=== PATIENT | female | born 1960 | race Two or more races ===

== ENCOUNTER 2023-03-16 08:35 | Emergency (ER) | payer OTHER, SELFPAY ==
--- NOTE | ~2023-03-16 | XR_ITS ---
EXAMINATION: XR CHEST CLINICAL INFORMATION: Cough. COMPARISON: None available. TECHNIQUE: Frontal view of the chest was obtained. FINDINGS: No significant abnormality is noted involving the heart, lungs, mediastinum, bony thorax or soft tissues. XR/XR chest 1V IMPRESSION: No acute cardiopulmonary process.
[2023-03-16 08:36] VITALS: BP 121/73; PULSE 90; RESP 18; TEMP 37.1; O2SAT 98; BMI 31.2
[2023-03-16 09:05] LABS: IDNOW Serial# 08D9AD1C; Strep A Nucleic Acid Positive (Negative)
[2023-03-16 09:34] LABS: Influenza A PCR NEGATIVE (Negative); Influenza B PCR NEGATIVE (Negative); Resp Syncy Virus RNA Qual PCR NEGATIVE (Negative); SARS COV2 PCR INHOUSE NEGATIVE (Negative)
--- NOTE | 2023-03-16 09:49 | ED_ITS ---
HPI - General Adult General Chief complaint: General Medical Stated complaint: Sore throat/SOB/Back pain Time Seen by Provider: 03/16/23 09:37 Source: patient, family, RN notes reviewed and old records reviewed Mode of arrival: ambulatory History of Present Illness HPI narrative: 62-year-old female the past medical history of asthma presenting to the ED complaining of generalized fatigue/weakness, dry cough, ear pain, sore throat, nausea, emesis x1 and mild SOB x 3 days. Reports painful swallowing. Denies difficulty/inability to swallow, chest pain, abdominal pain, recent travel, pedal edema Onset (ago): day(s) Related Data Previous Rx's Medication Instructions Recorded penicillin V potassium 500 mg 500 mg PO BID 10 days #20 tabs 03/16/23 tablet Allergies Allergy/AdvReac Type Severity Reaction Status Date / Time No Known Allergies Allergy Verified 03/16/23 08:39 Review of Systems Review of Systems: Constitutional: +subj Fever, + Chills, +fatigue ENT/Mouth: No Ear Pain, + Nasal Congestion, No Sinus Pain, No Hoarseness, + sore throat, + Rhinorrhea, No Swallowing Difficulty Cardiovascular: No Chest Pain, + SOB Respiratory: + Cough, No Sputum, No Wheezing Gastrointestinal: + Nausea, + Vomiting, No Diarrhea, No Constipation, No Abdominal pain Genitourinary: No Dysuria, No Urinary Frequency, No Urgency, No Flank Pain Musculoskeletal: No joint pain, No Myalgias, No Joint Swelling Skin: No Skin Lesions, No rash Neuro: + Weakness, No Numbness, No Paresthesias Yes all other systems are reviewed and are negative Constitutional: Constitutional: Reports as per [facility] Past Medical History Attestation statement: The following information was validated with the patient. Social History Social History Advance Directives: No Advance Directives Information Provided: No Physical Exam ED Vital Signs: Vital Signs - 24 hr 03/16/23 08:36 Temperature 98.8 F Pulse Rate 90 Respiratory Rate 18 Blood Pressure 121/73 Pulse Oximetry 98 Oxygen Delivery Method Room Air BMI result Body Mass Index 31.2 Const General: cooperative, healthy appearing, no acute distress, alert and awake; No ill appearing Orientation/consciousness: patient oriented x3 Limitations: no limitations HENMT Head: Yes normal to inspection and Yes atraumatic Ears: hearing grossly normal bilaterally, external ears normal, TM's normal bilaterally and mastoids normal General nose exam: Normal external nose present Face and sinus: Yes normal facial exam Throat: Yes abnormal tonsil, No peritonsillar mass, Yes posterior oropharynx abnormal (+ erythematous with exudates) and Yes uvular edema (Mild) Eyes General: appearance normal, both eyes and all related structures EOM: EOMs intact bilaterally Neck Other: + submandibular lymphadenopathy Neck: Yes normal visual inspection, Yes no meningeal signs, Yes trachea midline and No anterior neck swelling Resp Effort & Inspection: normal respiratory effort, no respiratory distress and no stridor Auscultation: clear to auscultation bilaterally, no crackles, no rales, no rhonchi and no wheezes Cardio Rate: regular rate Heart sounds: S1 normal heart sound present and S2 normal heart sound present Skin Rashes: no rashes Wounds: no wounds Neuro General: patient oriented x3, tone normal and no meningeal signs Gait exam (Neuro): Normal gait present Extrem General: Yes normal to inspection Course Course Course Narrative: -954--COVID/flu/RSV negative. Rapid strep positive > will give dose of p.o. Decadron -CXR unremarkable Results discussed with patient including worrisome signs and symptoms and strict return precautions, and when to return to the emergency department. They verbalized understanding and feel safe for discharge at this time. Medications Administered Discontinued Medications Generic Name Dose Route Start Last Admin Trade Name Freq PRN Reason Stop Dose Admin Dexamethasone Sodium Phosphate 10 mg 03/16/23 09:45 03/16/23 10:03 Dexamethasone Sod Phosphate 10 Mg/Ml Vial IVPUSH 03/16/23 09:46 10 mg ONCE ONE Administration Medical Decision Making Medical Decision Making [facility] Narrative: 62-year-old female the past medical history of asthma presenting to the ED complaining of generalized fatigue/weakness, dry cough, ear pain, sore throat, nausea, emesis x1 and mild SOB x 3 days. On exam vital signs stable, NAD, nontoxic appearing, talking in complete sentences, no respiratory distress, lungs CTA, posterior oropharynx erythematous with exudate and mild uvular edema. Uvula midline, no evidence of [employer]NA[employer]. Concern for viral illness vs strep pharyngitis vs pneumonia. Lower suspicion for intra-abdominal pathology including appendicitis/diverticulitis or ACS/PE Plan: COVID/flu/rapid strep testing, CXR, reassess Please refer to course for remaining clinical decision making, interpretation of labs/imaging results, and discussions with consultants and/or family members. Differential Diagnosis Differential Diagnoses: The differential diagnosis associated with the presentation includes As above Admission/Observation Consideration of admission/observation: Escalation of care including admission/observation considered Lab Data MDM Lab Attestation statement: I reviewed the patient's lab results. Labs: Lab Results 03/16/23 03/16/23 Range/Units 08:48 08:48 Influenza Type A (PCR) NEGATIVE (Negative) Influenza Type B (PCR) NEGATIVE (Negative) RSV RNA Qual (PCR) NEGATIVE (Negative) SARS-CoV-2 RNA (RT-PCR) NEGATIVE (Negative) S. pyogenes GrpA SCOTTY Positive A (Negative) Radiology Impression Discussion of test interpretation with radiology: I have reviewed the radiologist's reading. External Record Review External record reviewed: Inpatient record, Office record, Outpatient record, Prior outpatient labs, Prior outpatient radiology, Primary care record and Outside ED record Discharge Plan Discharge Clinical Impression: Acute streptococcal pharyngitis Patient Disposition: Home, Self-Care Instructions: Strep Throat (DC) Additional Instructions: You have strep throat. Penicillin is antibiotic please take as prescribed You tested negative for COVID, flu, RSV, and your x-ray was unremarkable Rest Stay hydrated Gargle with warm salt water Take Tylenol and Motrin as needed If symptoms persist or worsen, you develop persistent or worsening sore throat, difficulty or inability to swallow return to the ED Prescriptions: New penicillin V potassium 500 mg tablet 500 mg PO BID 10 Days Qty: 20 0RF Referrals: Physician,Unknown J [Primary Care Provider] - Stand Alone Forms: Work/School Release Interventions: ED Discharge Assessment Last Done: 03/16/23 10:06 Discharge Date/Time: 03/16/23 10:06
[2023-03-16] MEDS: dexAMETHasone sod phosphate 10 MG/ML VIAL IVPUSH (10:03)
== END 2023-03-16 10:06 | disposition home or self-care (01) ==
PROVIDERS: Emergency Provider Emergency Medicine
DX: J02.0 Streptococcal pharyngitis (principal); J02.8 Acute pharyngitis due to other specified organisms; R05.9 Cough, unspecified; R06.02 Shortness of breath; M54.50 Low back pain, unspecified; Z20.822 Contact with and (suspected) exposure to COVID-19; Z20.828 Contact with and (suspected) exposure to other viral communicable diseases; Z79.899 Other long term (current) drug therapy
CPT/HCPCS: 0241U; 71045; 87651; 99282; 99283; J1100

== ENCOUNTER 2023-09-30 14:53 | Emergency (ER) | payer OTHER, SELFPAY ==
--- NOTE | ~2023-09-30 | XR_ITS ---
EXAMINATION: X-RAY LUMBAR SPINE X-RAY SACRUM/COCCYX CLINICAL INDICATION: Fall. COMPARISON: No similar priors. TECHNIQUE: 3 views of the lumbar spine and 3 views of the cecum/coccyx. FINDINGS: Lumbar spine: No evidence of acute compression deformity or traumatic subluxation. Mild intervertebral disc height loss and facet arthropathy at L5-S1. No significant paraspinal soft tissue abnormality. Sacrum/coccyx: SI joints are symmetric. No discrete displaced sacral fracture. Pubic symphysis and pelvic rim are maintained. Small pelvic phleboliths. XR/XR lumbar spine 2-3V IMPRESSION: No acute fracture or subluxation seen. Mild lower lumbar spondylosis.
--- NOTE | ~2023-09-30 | XR_ITS ---
EXAMINATION: X-RAY LUMBAR SPINE X-RAY SACRUM/COCCYX CLINICAL INDICATION: Fall. COMPARISON: No similar priors. TECHNIQUE: 3 views of the lumbar spine and 3 views of the cecum/coccyx. FINDINGS: Lumbar spine: No evidence of acute compression deformity or traumatic subluxation. Mild intervertebral disc height loss and facet arthropathy at L5-S1. No significant paraspinal soft tissue abnormality. Sacrum/coccyx: SI joints are symmetric. No discrete displaced sacral fracture. Pubic symphysis and pelvic rim are maintained. Small pelvic phleboliths. XR/XR sacrum coccyx min 2V IMPRESSION: No acute fracture or subluxation seen. Mild lower lumbar spondylosis.
[2023-09-30 15:24] VITALS: BP 119/71; PULSE 84; RESP 20; TEMP 36.6; O2SAT 96; BMI 30.6
--- NOTE | 2023-09-30 17:43 | ED.BACK ---
HPI - Back Pain/Injury General Chief Complaint: Back Pain/Injury Stated Complaint: Back Pain S/P Work Injury 09/30/23 Time Seen by Provider: 09/30/23 16:04 Source: patient, RN notes reviewed and old records reviewed Mode of arrival: ambulatory History of Present Illness HPI Narrative: 62-year-old female with no significant past medical history presenting to the ED complaining of left lower back/upper buttock pain > left s/p falling out of chair at work this afternoon. Denies symptoms prior to fall. Denies head injury, LOC. admits pain radiates from low back to neck/head. Denies nausea, vomiting, vision change, incontinence/retention, abdominal pain, weakness. Denies taking AC Related Data Previous Rx's Medication Instructions Recorded penicillin V potassium 500 mg 500 mg PO BID 10 days #20 tabs 03/16/23 tablet acetaminophen 500 mg tablet 500 mg PO Q6H PRN fever or pain 09/30/23 (Tylenol Extra Strength) #14 tabs lidocaine 5 % topical patch 1 patch topical DAILY PRN pain #30 09/30/23 (Lidoderm) ea naproxen 500 mg tablet 500 mg PO BID PRN pain 10 days #20 09/30/23 tabs Allergies Allergy/AdvReac Type Severity Reaction Status Date / Time No Known Allergies Allergy Verified 09/30/23 15:28 Review of Systems Review of Systems: Constitutional: No Fever, No Chills ENT/Mouth: No Ear Pain, No Nasal Congestion, No sore throat, No Rhinorrhea, No Swallowing Difficulty Cardiovascular: No Chest Pain, No SOB Respiratory: No Cough Gastrointestinal: No Nausea, No Vomiting, No Diarrhea, No Constipation, No Abdominal pain Genitourinary: No Dysuria, No Urinary Frequency, No Hematuria, No Urinary Incontinence/retention, No Flank Pain Musculoskeletal: +joint pain, No Myalgias, No Joint Swelling Skin: No Skin Lesions, No rash Neuro: No Weakness, No Numbness, No Paresthesias Yes all other systems are reviewed and are negative Constitutional: Constitutional: Reports as per [facility] Past Medical History Attestation statement: The following information was validated with the patient. Source: old records reviewed Social History Social History Advance Directives: No Advance Directives Information Provided: No Physical Exam Vital Signs: Vital Signs: Last Vital Signs Temp 97.9 F 09/30/23 15:24 Pulse 84 09/30/23 15:24 Resp 20 09/30/23 15:24 BP 119/71 09/30/23 15:24 Pulse Ox 96 09/30/23 15:24 O2 Del Method Room Air 09/30/23 15:24 BMI result Body Mass Index 30.6 Const: General: cooperative, healthy appearing and no acute distress Orientation/consciousness: patient oriented x3 Limitations: no limitations HEENT: Head: Yes normal to inspection and Yes atraumatic Ears: hearing grossly normal bilaterally General nose exam: Normal external nose present Face and sinus: Yes normal facial exam Eyes: General: appearance normal, both eyes and all related structures EOM: EOMs intact bilaterally Neck: Neck: Yes normal visual inspection and Yes no meningeal signs Resp: Effort & Inspection: normal respiratory effort and no respiratory distress Auscultation: clear to auscultation bilaterally Cardio: Rate: regular rate Heart sounds: S1 normal heart sound present and S2 normal heart sound present GI: Inspection: Yes normal to inspection Palpation (GI): Soft to palpation, nontender, no guarding and not rigid : General: Yes no CVA tenderness Back/Spine/Pelvis: Other: No midline cervical/thoracic/lumbar spinous tenderness/step-off or deformity. + left lower lumbar MSK/paraspinal and upper buttock tenderness to palpation. No rash/ecchymosis. No crepitus Back: no CVA tenderness Skin: Rashes: no rashes Wounds: no wounds Neuro: Other: Strength intact throughout. No saddle anesthesia. Sensation intact to light touch. Neurovascular intact distally General: patient oriented x3, gait normal, tone normal, moves all extremities, no meningeal signs and no focal motor deficits Cranial nerves: Yes CN's II-XII intact bilaterally Cognition (Neuro): normal cognition Gait exam (Neuro): Normal gait present Extrem: General: Yes normal to inspection Course Course Course Narrative: XR sacrum coccyx min 2VXR lumbar spine 2-3V IMPRESSION: No acute fracture or subluxation seen. Mild lower lumbar spondylosis. Results discussed with patient including worrisome signs and symptoms and strict return precautions, and when to return to the emergency department. They verbalized understanding and feel safe for discharge at this time. Medical Decision Making Medical Decision Making MDM Narrative: 62-year-old female with no significant past medical history presenting to the ED complaining of left lower back/upper buttock pain > left s/p falling out of chair at work this afternoon. On exam vital signs stable, NAD, nontoxic appearing, physical exam as noted above. No midline spinous tenderness. Reproducible left-sided MSK/paraspinal and buttock tenderness noted. Ambulating with steady gait, no saddle anesthesia. Concern for MSK pain/strain vs contusion vs sciatica. Rule out fracture. Low suspicion for renal stone/pyelo, cauda equina/cord compression or intra-abdominal pathology Plan: X-rays Please refer to course for remaining clinical decision making, interpretation of labs/imaging results, and discussions with consultants and/or family members. Differential Diagnosis Differential Diagnoses: The differential diagnosis associated with the presentation includes As above Radiology Impression Discussion of test interpretation with radiology: I have reviewed the radiologist's reading. External Record Review External record reviewed: Inpatient record, Office record, Outpatient record, Prior outpatient labs, Prior outpatient radiology, Primary care record and Outside ED record Tests considered The following testing was considered but not selected: As above Prescription Management I considered prescription management with: Pain Medication Discharge Plan Discharge Clinical Impression: Low back pain Patient Disposition: Home, Self-Care Instructions: Acute Low Back Pain (ED) Additional Instructions: Your x-rays do not show any acute findings. ICE Your pain is likely musculoskeletal Naproxen as an anti-inflammatory / pain medication, take with food Lidoderm patches are numbing patches, apply to painful area In addition take Tylenol at home If symptoms persist or worsen, pain becomes unbearable, you developed urinary retention or incontinence, or weakness return to the ED Prescriptions: New acetaminophen [Tylenol Extra Strength] 500 mg tablet 500 mg PO Q6H PRN (Reason: fever or pain) Qty: 14 0RF lidocaine [Lidoderm] 5 % adhesive patch,medicated 1 patch topical DAILY MDD remove after 12 hours PRN (Reason: pain) Qty: 30 0RF Rx Instructions: leave on most painful area for up to 12 hrs naproxen 500 mg tablet 500 mg PO BID PRN (Reason: pain) 10 Days Qty: 20 0RF No Action penicillin V potassium 500 mg tablet 500 mg PO BID 10 Days Qty: 20 0RF Referrals: [facility] [Outside] Physician,Unknown J [Primary Care Provider] - Interventions: ED Discharge Assessment Last Done: 09/30/23 17:59 Discharge Date/Time: 09/30/23 18:00
== END 2023-09-30 18:00 | disposition home or self-care (01) ==
PROVIDERS: Emergency Provider Emergency Medicine
DX: M54.50 Low back pain, unspecified (principal); M53.3 Sacrococcygeal disorders, not elsewhere classified
CPT/HCPCS: 72100; 72220; 99282; 99283